=== PATIENT | male | born 2000 | race African-American/Black ===

== ENCOUNTER 2025-10-22 10:00 | Emergency (ER) | payer OTHER, SELFPAY ==
[2025-10-22 10:13] VITALS: BP 136/82; PULSE 73; RESP 16; TEMP 36.4; O2SAT 100
--- NOTE | 2025-10-22 10:31 | ED_ITS ---
HPI - Male Genitourinary General Chief complaint: Urogenital-Male Stated complaint: Std Test Source: patient and RN notes reviewed Mode of arrival: ambulatory Limitations: no limitations History of Present Illness HPI Narrative: 25-year-old male presented for STD testing/treatment. Endorses known exposure to gonorrhea. Says he was notified this morning a sexual partner tested positive. Denies symptoms, says not that I know of. Related Data Allergies Allergy/AdvReac Type Severity Reaction Status Date / Time No Known Allergies Allergy Verified 10/22/25 10:10 Review of Systems Review of Systems: CONSTITUTIONAL: Denies body aches, fever, chills, or sweats. CARDIOVASCULAR: Denies chest pain, palpitations, or edema. RESPIRATORY: Denies cough or dyspnea. GASTROINTESTINAL: Denies abdominal pain, nausea, vomiting, or diarrhea. GENITOURINARY:denies dysuria, frequency, urgency, hematuria, flank pain, discharge SKIN: Denies rash, itching, or wounds. MUSCULOSKELETAL: Denies back pain or myalgia. PMFSH Comments At time of signature, I have reviewed and agree with nursing past medical, surgical, social and family history unless otherwise noted. Please see nursing chart for further information. There is no relevant family history pertinent to the presenting complaint Exam Narrative: GENERAL: Well-appearing and in no acute distress. ENT: Mucous membranes pink and moist. NECK: Normal AROM. Supple. CHEST: No respiratory distress. Clear to auscultation. HEART: Regular rate and rhythm. ABDOMEN: Soft, nontender, nondistended, normal active bowel sounds. No CVA tenderness SKIN: Warm, dry, no rash. NEURO: No focal deficits. Alert and oriented x3. Gait steady. PSYCH: Normal affect. Course Course Level of Care: Express Care Visit Vital Signs Vital signs: Vital Signs Temperature 97.6 F 10/22/25 10:13 Pulse Rate 73 10/22/25 10:13 Respiratory Rate 16 10/22/25 10:13 Blood Pressure 136/82 10/22/25 10:13 Pulse Oximetry 100 10/22/25 10:13 Temperature 97.6 F 10/22/25 10:13 Pulse Rate 73 10/22/25 10:13 Respiratory Rate 16 10/22/25 10:13 Blood Pressure 136/82 10/22/25 10:13 Pulse Oximetry 100 10/22/25 10:13 MDM MDM Narrative Medical decision making narrative: Patient presenting with concern for STD. Urine specimen collected for GC, chlamydia, trich. Informed Pt will be contacted w/ results when they become available if they are positive. Discussed with patient that it takes up to 7 days for results of cultures to be released and explained that we may treat empirically at this time. Agreeable to treatment at this time for gonorrhea only. He is aware he will be notified of the other tests. I have instructed the patient to return to the ER at any time if there are any new or worsening symptoms. The patient expressed understanding of and agreement with this plan. Differential Diagnosis Differential Diagnosis: STD, UTI, prostatitis, epididymitis Discharge Plan Discharge Clinical Impression: Concern about STD in male without diagnosis Patient Disposition: Home Condition: Stable Instructions: Antibiotic Form, Safe Sex Practices (ED), Gonorrhea (ED) Additional Instructions: Your urine sample today has been sent off to test for gonorrhea, chlamydia, and trichomonas infections. You will be called if any of your tests come back positive. These tests can take up to 5-7 days to come back. You have been given Rocephin today to treat for gonorrhea If your tests come back positive for chlamydia and/or trichomonas, Prescriptions will be sent to your pharmacy. You will need to notify any partners that you have so they can be tested and treated. To avoid reinfection, you are advised to abstain from sexual intercourse for 7 days (and any symptoms have resolved) to prevent transmission. Recommend safe sex practices to avoid infection. If your tests come back negative and you are still experiencing symptoms, please follow-up with your PCP for further evaluation and treatment. If your symptoms worsen to include fever, abdominal pain, or back pain, please go to the hospital immediately. Patient Language: Vietnamese Follow-up/Referrals: PHYSICIAN,VIDEO CONFERENCE SPECIALIST [Primary Care Provider, Internal Medicine]
[2025-10-22] MEDS: cefTRIAXone 500 MG, LIDOCAINE 1% LOCAL INJ 1 ML IM (10:44)
[2025-10-22 18:34] LABS: Trichomonas Vag PCR NOT DETECTED (NOT DETECTE)
== END 2025-10-22 11:15 | disposition home or self-care (01) ==
PROVIDERS: Emergency Provider Nurse Practitioner Family
DX: Z20.2 Contact with and (suspected) exposure to infections with a predominantly sexual mode of transmission (principal)
CPT/HCPCS: 87491; 87591; 87661; 96372; 99203; G0463; J0696; J2003